=== PATIENT | female | born 1990 | race Caucasian/White ===

== ENCOUNTER → 2019-02-18 07:09 | Outpatient (CLI) | payer OTHER, SELFPAY ==
--- NOTE | 2019-02-18 07:11 | DI.US.S_ITS ---
PROCEDURE: US OB >= 14 WEEKS FETUS INDICATIONS: ANATOMY OUTSIDE/PRIOR DATING DATA: Last menstrual period (LMP): 09/19/18. LMP-based estimated date of delivery (ALLIE): 06/26/19. First dating scan (date and location): 02/18/19. Estimated date of delivery (ALLIE) from first dating scan: 06/25/19. TECHNIQUE: Real-time scanning was performed of the fetus, with image documentation and biometric measurements. Endovaginal scanning: No COMPARISON: None. FINDINGS: General: A single living intrauterine gestation is present. Presentation: Breech. Placenta: Placental position is left lateral, and low lying with the inferior margin 1.2 cm above the internal cervical os. Amniotic fluid index: 14.5 cm, normal range is 5-24 cm. heart rate: 139 beats per minute. Maternal cervical canal: 3.5 cm long. Normal lower limit is 2.5 cm. biometrics: Biparietal diameter: 22 weeks 3 days Head circumference: 21 weeks 6 days Abdominal circumference: 22 weeks 4 days Femur length: 20 weeks 2 days Estimated gestational age from initial scan: not applicable. Composite gestational age from present scan: 21 weeks 6 days Estimated weight and percentile: 439 g; 40 percentile Measurement variability for biometric dating: +/- 7 days from 14 weeks to 15 weeks 6 days gestation, +/- 10 days from 16 weeks to 21 weeks 6 days gestation, +/- 2 weeks from 22 weeks to 27 weeks 6 days gestation, +/- 3 weeks for 28 weeks gestation or later. weight reference: 4500 g or EFW >90/95% is considered macrosomia or large for gestational age. EFW <10% is small for gestational age. EFW 5% or less is considered intra-uterine growth restriction. Anatomic survey: Neuro: Ventricles are non-dilated at less than 10 mm. Cisterna magna is normal at 3-11 mm. Cerebellum is normal in size and morphology. Nuchal skin fold: Normal at less than 6 mm between 14-21 weeks gestational age. Face: Nose and lips, facial profile are normal. Spine: No evidence for spina bifida. Heart: 4-chambered heart is present, with normal ventricular outflow tracts. Diaphragm: Diaphragm is intact. Stomach: Left-sided stomach is present. Kidneys: No hydronephrosis. Normal is less than 5 mm in 2nd trimester, less than 7 mm in 3rd trimester. Cord: 3-vessel cord has orthotopic insertion. Bladder: Normal in size. Extremities: All 4 extremities identified. IMPRESSION: 1. Single living IUP present with a mean composite gestational age of 21 weeks 6 days corresponding to ultrasound ALLIE of 06/25/19. 2. Facial profile not well-visualized; otherwise normal anatomic survey. Dictated by: Len Metz [facility] Interpreted: Beto Robles MD on 02/18/2019 at 15:46 Approved by: Beto Robles M.D. on 02/18/2019 at 17:43
== END ==
PROVIDERS: Visit Provider Obstetrics & Gynecology
DX: Z34.82 Encounter for supervision of other normal pregnancy, second trimester (principal); Z3A.21 21 weeks gestation of pregnancy
CPT/HCPCS: 76811

== ENCOUNTER → 2019-03-26 10:09 | Outpatient (CLI) | payer OTHER, SELFPAY ==
[2019-03-26 12:01] LABS: Hematocrit 32.2 % (36-46); Hemoglobin 10.7 g/dL (12.0-16.0)
[2019-03-26 12:25] LABS: GTT (PREG) 1 Hour PP 50gm Dose 131 mg/dL (76-139)
== END ==
PROVIDERS: PCP Nurse Practitioner; Visit Provider Obstetrics & Gynecology
DX: Z34.90 Encounter for supervision of normal pregnancy, unspecified, unspecified trimester (principal); Z34.82 Encounter for supervision of other normal pregnancy, second trimester
CPT/HCPCS: 36415; 82950; 85014; 85018; 86850; 86900; 86901

== ENCOUNTER → 2019-04-22 10:09 | Outpatient (CLI) | payer OTHER, SELFPAY ==
--- NOTE | 2019-04-22 10:10 | DI.US.S_ITS ---
PROCEDURE: US OB FOLLOW UP INDICATIONS: ASSESS PLACENTAL LOCATION OUTSIDE/PRIOR DATING DATA: Last menstrual period (LMP): 09/19/18. LMP-based estimated date of delivery (ALLIE): 06/26/19. First dating scan (date and location): 02/18/19. Estimated date of delivery (ALLIE) from first dating scan: 06/25/19. TECHNIQUE: Real-time scanning was performed of the fetus, with image documentation and biometric measurements. COMPARISON: [facility], , OB >= 14 WEEKS FETUS, 02/18/2019, 7:22. FINDINGS: General: A single living intrauterine gestation is present. Presentation: Cephalic Placenta: Placental position is anterior Amniotic fluid index: 10.4 cm heart rate: 119 beats per minute. Maternal cervical canal: 5.5 cm in length (closed) Other: The inferior tip of the placenta is noted to be positioned approximately 3.3 cm from the internal cervical os. This was best appreciated after the patient had voided. IMPRESSION: 1. Single live intrauterine . 2. The tip of the inferior placenta is positioned approximately 3 cm from the internal cervical os. Dictated by: Andrew Cohen M.D. on 04/22/2019 at 9:54 Approved by: Andrew Cohen M.D. on 04/22/2019 at 9:56
== END ==
PROVIDERS: PCP Nurse Practitioner; Visit Provider Obstetrics & Gynecology
DX: O44.43 Low lying placenta NOS or without hemorrhage, third trimester (principal); Z3A.30 30 weeks gestation of pregnancy
CPT/HCPCS: 76816

== ENCOUNTER 2019-05-15 12:20 | Emergency (ER) | payer OTHER, SELFPAY ==
[2019-05-15 12:33] VITALS: BP 118/77; PULSE 99; RESP 14; TEMP 36.4; O2SAT 100
--- NOTE | 2019-05-15 13:04 | DI.US.S_ITS ---
PROCEDURE: US PERIPH VENOUS LOW EXTREM RT INDICATIONS: EDEMA TECHNIQUE: Real-time imaging, as well as color and pulse Doppler interrogation, were performed of the lower extremity deep veins from the inguinal ligament to the popliteal fossa. COMPARISON: None. FINDINGS: The common femoral, femoral and popliteal veins are normally compressible, and free of intraluminal thrombus. Color and pulse Doppler demonstrate normal phasic intraluminal flow. There is normal augmentation response to distal compression maneuver. IMPRESSION: Negative for deep venous thrombosis. Dictated by: Roland Ruelas M.D. on 05/15/2019 at 13:22 Approved by: Roland Ruelas M.D. on 05/15/2019 at 13:22
--- NOTE | 2019-05-15 13:50 | ED.EXTPRO ---
HPI - Extremity Problem General Chief complaint: Extremity Problem,Nontraumatic Stated complaint: thinks possible DVT right leg Time Seen by Provider: 05/15/19 13:50 Source: patient Mode of arrival: Wheelchair Limitations: no limitations History of Present Illness HPI Narrative: This is a 28-year-old female comes to the emergency department with concern for DVT in the right lower extremity. She is 34 weeks . She has noticed swelling in both of her lower extremities but significantly more in the right 1. Patient states that the left 1 will have some swelling but goes away easier when she elevates her legs wears the right 1 does not. Patient has not noted significant pain. She has not had any redness or other color changes to her lower extremity. She was seen by her obstetrics physician today and they attempted to get a DVT ultrasound as an outpatient but were unsuccessful so she was sent here for evaluation. Patient has not had any new issues with shortness of breath, no chest pain or pressure. She states that she has not had any abdominal pain or cramping. She states that the baby does seem to sit more on the right side. She did have a slight 2 weeks ago that was approximately 2 hours in duration to [place]. Related Data Home Medications Medication Instructions Recorded Confirmed [id number]-[id number] 3-fat com #1 27 cap PO 02/05/19 05/15/19 mg-1 mg-300 mg capsule levothyroxine 25 mcg tablet 25 mcg PO DAILY 02/05/19 05/15/19 Allergies Allergy/AdvReac Type Severity Reaction Status Date / Time amoxicillin Allergy Mild hives Verified 05/01/19 13:52 sulfamethoxazole Allergy Mild hives Verified 05/01/19 13:52 [From ] trimethoprim [From ] Allergy Mild hives Verified 05/01/19 13:52 Review of Systems Review of Systems ROS Unobtainable: All systems reviewed & are unremarkable except as noted in HPI and below Patient History Medical History Acne (Chronic) Allergies (Chronic) Endometriosis (Chronic) Frequent headaches (Acute) Heavy menstrual period (Chronic) Hypothyroidism (Chronic ~2018) Infertility (Inactive ~2016) Migraine (Acute) Ovarian cyst (Chronic) Painful menstrual periods (Chronic) Vision disorder (Chronic) Surgical History Anesthesia (Resolved) History of laparoscopy (Resolved ~08/13/18) History of laparoscopy (Inactive ~2008) History of tonsillectomy (Resolved ~2003) Family History (Updated 02/12/19 @ 11:20 by Pao Acuña RN) Father Hypertension Mother Hypertension Grandmother Hypertension Grandfather Diabetes mellitus Grandmother Cancer H/O hyperthyroidism Social History marital status: Smoking Status: Never smoker Smoking Status: Never smoker alcohol intake frequency: other Substance Use Type: does not use Exam Narrative Exam Narrative: GENERAL: Alert and oriented x three, well-nourished, well-appearing female in no acute distress. HEENT: Head normocephalic, atraumatic, EOMI, pupils reactive, face symmetric, moist mucous membranes NECK: Supple, full range of motion CARDIOVASCULAR: Regular rate and rhythm without murmurs, rubs or gallops. RESPIRATORY: Breath sounds equal bilaterally, no wheezes rales or rhonchi. ABDOMEN: Soft, nontender. Gravid, size appropriate for dates. Normoactive bowel sounds all 4 quadrants. No guarding or rebound, rigidity, no mass : No CVA tenderness EXTREMITIES: Normal range of motion, mild bilateral lower extremity edema, nonpitting. Neurovascularly intact NEUROLOGICAL: Cranial nerves II through XII grossly intact. Moving all extremities SKIN: Warm, dry, no petechiae, no rashes or lesions. Initial Vital Signs Initial Vital Signs: Vital Signs Temperature 97.6 F 05/15/19 12:33 Pulse Rate 99 H 05/15/19 12:33 Respiratory Rate 14 05/15/19 12:33 Blood Pressure 118/77 05/15/19 12:33 Pulse Oximetry 100 05/15/19 12:33 Course Orders Ordered: ED Orders 05/15/19 13:04 US periph venous low extrem rt Stat Vital Signs Vital signs: Vital Signs - 8 hr 05/15/19 12:33 05/15/19 13:51 Temperature 97.6 F Pulse Rate 99 H Pulse Rate [Right Dorsalis Pedis] 72 Respiratory Rate 14 Blood Pressure 118/77 Pulse Oximetry 100 MDM - Extremity (Nontraumatic) Imaging Data US - DVT: Radiologist's Impression: [address] [address] Ultrasound Report Signed Patient: Lainey Wallace [facility]#: [id number] : 1990Acct:[id number] Age/Sex: 28 / FDate of Service: 05/15/19 Loc: ED Accession Number: [id number] Procedure: US periph venous low extrem rt Ordering Provider: Melodie Hernandes D.O. PROCEDURE: US PERIPH VENOUS LOW EXTREM RT INDICATIONS: EDEMA TECHNIQUE: Real-time imaging, as well as color and pulse Doppler interrogation, were performed of the lower extremity deep veins from the inguinal ligament to the popliteal fossa. COMPARISON: None. FINDINGS: The common femoral, femoral and popliteal veins are normally compressible, and free of intraluminal thrombus. Color and pulse Doppler demonstrate normal phasic intraluminal flow. There is normal augmentation response to distal compression maneuver. IMPRESSION: Negative for deep venous thrombosis. Dictated by: Roland Ruelas M.D. on 05/15/2019 at 13:22 Approved by: Roland Ruelas M.D. on 05/15/2019 at 13:22 [facility] Narrative Medical decision making narrative: Ultrasound is negative for DVT. Patient does have risk factors that warranted ordering imaging as she is as well as had recent travel although it was not prolonged period. We discussed that patient may be having some pelvic congestion that is causing some of her edema and potentially little bit more on the right than the left but did discuss strict return cautions. Patient has follow-up in 1 week with her OBGYN. Discharge Plan Departure Patient Disposition: Home Clinical Impression: Edema of left lower extremity, Discharge Date/Time: 05/15/19 14:23 Activity Restrictions/Additional Instructions: Follow-up with obstetrics at your appointment next week. Continue home medication as prescribed. Elevate your legs when you are able, some individuals fine compression hose or stockings to be helpful. Return to the ER for fevers greater 100.4 F, rapidly worsening swelling with redness, increasing pain, numbness or tingling, new chest pain, shortness of breath, lightheadedness or passing out, hyper reflexia or other new or concerning symptoms. Prescriptions: No Action WGY-hjpm-TZ-omega 3-fat com #1 27-1-300 mg capsule PO RF: 0 levothyroxine [Synthroid] 25 mcg tablet 25 mcg PO DAILY RF: 0 Referrals: Yudy Monreal ARNP [Primary Care Provider] -
[2019-05-15 13:51] VITALS: PULSE 72
== END 2019-05-15 14:23 | disposition home or self-care (01) ==
PROVIDERS: Emergency Provider Emergency Medicine; PCP Nurse Practitioner
DX: R60.9 Edema, unspecified (principal)
CPT/HCPCS: 93971; 99283

== ENCOUNTER → 2019-05-22 11:18 | Outpatient (CLI) | payer OTHER, SELFPAY ==
[2019-05-23 09:15] LABS: Strep Grp B PCR NEG for Grp B Strep
== END ==
PROVIDERS: PCP Nurse Practitioner; Visit Provider Obstetrics & Gynecology
DX: Z34.83 Encounter for supervision of other normal pregnancy, third trimester (principal); Z3A.35 35 weeks gestation of pregnancy
CPT/HCPCS: 87653

== ENCOUNTER 2019-05-22 11:39 | Outpatient (CLI) | payer OTHER, SELFPAY ==
--- NOTE | 2019-05-22 12:27 | PM.OBTRLD ---
Visit Information Visit Information Date of evaluation: 05/22/19 Reason for Evaluation: Yes non-stress test Comments/Additional reasons for admission: Patient is a 28yo @35+0 sent for NST after variables vs low baseline on dopplar in office, no other obstetrical complaints, no complications. Vital Signs Vital Signs: 129/81, HR 95 PFSH Medical History Acne (Chronic) Allergies (Chronic) Endometriosis (Chronic) Frequent headaches (Acute) Heavy menstrual period (Chronic) Hypothyroidism (Chronic ~2017) Infertility (Inactive ~2015) Migraine (Acute) Ovarian cyst (Chronic) Painful menstrual periods (Chronic) Vision disorder (Chronic) Surgical History Anesthesia (Resolved) History of laparoscopy (Resolved ~08/13/18) History of laparoscopy (Inactive ~2008) History of tonsillectomy (Resolved ~2003) Family History Father Hypertension Mother Hypertension Grandmother Hypertension Grandfather Diabetes mellitus Grandmother Cancer H/O hyperthyroidism Social History marital status: Smoking Status: Never smoker Review of Systems Constitutional Constitutional: Reports system reviewed and no additional complaints, except as documented Evaluation Evaluation Baseline heart rate: 115 Variability: Moderate (11-25) monitor accelerations: Present monitor decelerations: Absent Category of Tracing: I Comments: Baseline low end of normal range, but reassuring status Diagnosis, Plan/Disposition Plan/Disposition Plan: Patient with reassuring status, discharged home with precautions and outpatient follow up OB Disposition: home
== END 2019-05-22 12:35 | disposition home or self-care (01) ==
LOC: OB 05-23 10:01
PROVIDERS: PCP Nurse Practitioner; Referring Provider Obstetrics & Gynecology; Visit Provider Obstetrics & Gynecology
DX: O36.8330 Maternal care for abnormalities of the fetal heart rate or rhythm, third trimester, not applicable or unspecified (principal); Z3A.35 35 weeks gestation of pregnancy
CPT/HCPCS: 59025; 87653; G0378; G0379

== ENCOUNTER 2019-05-29 11:01 | Outpatient (CLI) | payer OTHER, SELFPAY ==
--- NOTE | 2019-05-29 11:47 | DI.US.S_ITS ---
PROCEDURE: US OB >= 14 WEEKS FETUS INDICATIONS: BPP; EFW OUTSIDE/PRIOR DATING DATA: Last menstrual period (LMP): 09/19/2018. LMP-based estimated date of delivery (ALLIE): 06/26/2019. First dating scan (date and location): 02/18/2019, [facility]. Estimated date of delivery (ALLIE) from first dating scan: 06/25/2019. TECHNIQUE: Real-time scanning was performed of the fetus, with image documentation and biometric measurements. Endovaginal scanning: Not performed COMPARISON: [facility], OB FOLLOW UP, 04/22/2019, 10:17. [facility], OB >= 14 WEEKS FETUS, 02/18/2019, 7:22. FINDINGS: General: A single living intrauterine gestation is present. Presentation: Vertex. Placenta: Placental position is anterior, without previa. Amniotic fluid index: 13.1 cm, normal range is 5-24 cm. heart rate: 155 beats per minute. Maternal cervical canal: Not well-seen. biometrics: Biparietal diameter: 8.9 cm. 36 weeks 1 day. Head circumference: 32.3 cm. 36 weeks 4 days. Abdominal circumference: 32.1 cm. 32 weeks 1 day. Femur length: 6.5 cm. 33 weeks 3 days. Estimated gestational age from initial scan: 36 weeks 1 day. Composite gestational age from present scan: 35 weeks 4 days. Estimated weight and percentile: 2667 g. 31st percentile. Measurement variability for biometric dating: +/- 7 days from 14 weeks to 15 weeks 6 days gestation, +/- 10 days from 16 weeks to 21 weeks 6 days gestation, +/- 2 weeks from 22 weeks to 27 weeks 6 days gestation, +/- 3 weeks for 28 weeks gestation or later. weight reference: 4500 g or EFW >90/95% is considered macrosomia or large for gestational age. EFW <10% is small for gestational age. EFW 5% or less is considered intra-uterine growth restriction. Biophysical profile: Score 8 out of 8 Tone: 2 Movement: 2 Respiration: 2 Largest pocket: 2 IMPRESSION: 1. Andrews living intrauterine at 35 weeks 4 days based on today's ultrasound. This is concordant with the prior ultrasound. There is interval growth. The fetus is in the 31st percentile for weight. Femoral length and abdominal circumference are measuring slightly smaller than expected. 2. Normal placenta and amniotic fluid. 3. Normal biophysical profile. Score 8 out of 8. Dictated by: Nico De Leon M.D. on 05/29/2019 at 12:57 Approved by: Nico De Leon M.D. on 05/29/2019 at 13:07
--- NOTE | 2019-05-29 12:26 | PM.OBTRLD ---
Visit Information Visit Information Date of evaluation: 05/29/19 Primary OB Provider: Norma Copeland Reason for Evaluation: Yes non-stress test Comments/Additional reasons for admission: Patient is a 28yo P0 @36+0 reporting two days of decreased movement. Vital Signs Vital Signs: 137/84 -> 125/84, 124/80 [facility] Medical History Acne (Chronic) Allergies (Chronic) Endometriosis (Chronic) Frequent headaches (Acute) Heavy menstrual period (Chronic) Hypothyroidism (Chronic ~2017) Infertility (Inactive ~2015) Migraine (Acute) Ovarian cyst (Chronic) Painful menstrual periods (Chronic) Vision disorder (Chronic) Surgical History Anesthesia (Resolved) History of laparoscopy (Resolved ~08/13/18) History of laparoscopy (Inactive ~2008) History of tonsillectomy (Resolved ~2003) Family History Father Hypertension Mother Hypertension Grandmother Hypertension Grandfather Diabetes mellitus Grandmother Cancer H/O hyperthyroidism Social History marital status: Smoking Status: Never smoker Review of Systems Constitutional Constitutional: Reports system reviewed and no additional complaints, except as documented Evaluation Evaluation Baseline heart rate: 125 Variability: Average (6-10) monitor accelerations: Present monitor decelerations: Absent Category of Tracing: I Comments: 8/8 BPP per verbal report Diagnosis, Plan/Disposition Plan/Disposition Plan: Discharge home with antepartum precautions, kick counts discussed in office. Outpatient follow up scheduled. OB Disposition: home
== END 2019-05-29 12:35 | disposition home or self-care (01) ==
LOC: LABOR 12:23 → OB 05-30 09:33
PROVIDERS: PCP Nurse Practitioner; Referring Provider Obstetrics & Gynecology; Visit Provider Obstetrics & Gynecology
DX: O36.8130 Decreased fetal movements, third trimester, not applicable or unspecified (principal); Z3A.36 36 weeks gestation of pregnancy
CPT/HCPCS: 59025; 76811; 76819; G0378; G0379

== ENCOUNTER 2019-05-31 15:29 | Outpatient (CLI) | payer OTHER, SELFPAY ==
[2019-05-31 15:54] LABS: Bacteria Urine None Seen; WBC Urine None Seen (0-5/HPF)
[2019-05-31 16:12] LABS: Appearance Urine UA CLEAR; Bilirubin Urine UA NEGATIVE (NEGATIVE); Color Urine UA YELLOW; Glucose Urine UA TRACE g/dL (Negative); Ketones Urine UA NEGATIVE (NEGATIVE); Leukocyte Esterase Urine UA NEGATIVE (NEGATIVE); Nitrite Urine UA NEGATIVE (Negative); Occult Blood Urine UA NEGATIVE (Negative); Protein Urine UA NEGATIVE (Negative); Specific Gravity Urine UA <=1.005 (1.000-1.035); Urobilinogen Urine UA 0.2 E.U./dL (0.2)
[2019-05-31 16:25] LABS: Culture Indicated Urine Cult Not Indicated; RBC Urine 0-1/HPF (0-5/HPF); Squamous Epithelial Cell Urine 0-1 /HPF (0-5/HPF)
--- NOTE | 2019-05-31 16:36 | PM.OBTRLD ---
Visit Information Visit Information Date of evaluation: 05/31/19 Primary OB Provider: Norma Copeland Reason for Evaluation: Yes non-stress test Comments/Additional reasons for admission: This patient is a 28yo @36+3 presenting with intermittent cramping pain since this AM. Patient reports no decreased movement, LOF, VB, abdominal pain, BEAL, visual changes, or any other symptoms. Patient reports feeling otherwise well with no GI or UTI symptoms. Vital Signs Vital Signs: 131/78 -> 122/71, HR 93 PFSH Medical History Acne (Chronic) Allergies (Chronic) Endometriosis (Chronic) Frequent headaches (Acute) Heavy menstrual period (Chronic) Hypothyroidism (Chronic ~2017) Infertility (Inactive ~2015) Migraine (Acute) Ovarian cyst (Chronic) Painful menstrual periods (Chronic) Vision disorder (Chronic) Surgical History Anesthesia (Resolved) History of laparoscopy (Resolved ~08/13/18) History of laparoscopy (Inactive ~2008) History of tonsillectomy (Resolved ~2003) Family History Father Hypertension Mother Hypertension Grandmother Hypertension Grandfather Diabetes mellitus Grandmother Cancer H/O hyperthyroidism Social History marital status: Smoking Status: Never smoker Review of Systems Constitutional Constitutional: Reports system reviewed and no additional complaints, except as documented Respiratory Respiratory: Reports system reviewed and no additional complaints, except as documented Gastrointestinal Gastrointestinal: Reports as per HPI and Reports system reviewed and no additional complaints, except as documented Genitourinary Genitourinary: Reports as per HPI Exam GI Palpation: soft and No tender Other: 0/50/-3, posterior, firm per nursing staff cervical exam Objective Labs Labs: Laboratory Results - last 24 hr 05/31/19 15:45 Urine Color Yellow Urine Appearance Clear Urine pH 7.0 Ur Specific [place] <=1.005 Urine Protein Negative Urine Glucose (UA) Trace H Urine Ketones Negative Urine Occult Blood Negative Urine Nitrate Negative Urine Bilirubin Negative Urine Urobilinogen 0.2 Ur Leukocyte Esterase Negative Urine RBC 0-1/hpf Urine WBC None seen Ur Squamous Epith Cells 0-1 /hpf Urine Bacteria None seen Ur Culture Indicated? Cult not indicated Evaluation Evaluation Baseline heart rate: 120 Variability: Moderate (11-25) monitor accelerations: Present monitor decelerations: Absent Contraction Frequency (minutes): 0 Category of Tracing: I Cervical dilation (cm): 0 Cervical effacement (%): 50 station: -3 Laboratory results: Laboratory Tests 05/31/19 15:45 Urine Color Yellow Urine Appearance Clear Urine pH 7.0 Ur Specific [place] <=1.005 Urine Protein Negative Urine Glucose (UA) Trace H Urine Ketones Negative Urine Occult Blood Negative Urine Nitrate Negative Urine Bilirubin Negative Urine Urobilinogen 0.2 Ur Leukocyte Esterase Negative Urine RBC 0-1/hpf Urine WBC None seen Ur Squamous Epith Cells 0-1 /hpf Urine Bacteria None seen Ur Culture Indicated? Cult not indicated Diagnosis, Plan/Disposition Plan/Disposition Plan: patient reports intermittent cramping, now improved and with no signs of UTI, labor, abruption, or infection. Patient counselled on labor in the 36th week, antepartum precautions stressed. Patient and spouse vocalized understanding. OB Disposition: home
== END 2019-05-31 16:40 | disposition home or self-care (01) ==
LOC: LABOR 16:08 → OB 06-03 16:48
PROVIDERS: PCP Nurse Practitioner; Referring Provider Obstetrics & Gynecology; Visit Provider Obstetrics & Gynecology
DX: O47.03 False labor before 37 completed weeks of gestation, third trimester (principal); Z3A.36 36 weeks gestation of pregnancy
CPT/HCPCS: 59025; 81001; G0378; G0379

== ENCOUNTER 2019-06-27 12:20 | Outpatient (CLI) | payer OTHER, SELFPAY | END 2019-06-27 13:39 | disposition home or self-care (01) | LOC: OB 14:35 | PROVIDERS: PCP Nurse Practitioner | DX: O48.0 Post-term pregnancy (principal); Z3A.40 40 weeks gestation of pregnancy | CPT/HCPCS: 59025; G0378; G0379 ==

== ENCOUNTER 2019-07-01 11:23 | Outpatient (CLI) | payer OTHER, SELFPAY ==
--- NOTE | 2019-07-01 14:48 | PM.OBTRLD ---
Visit Information Visit Information Date of evaluation: 07/01/19 Primary OB Provider: Norma Copeland Reason for Evaluation: Yes non-stress test Comments/Additional reasons for admission: Postdates testing [facility] Medical History Acne (Chronic) Allergies (Chronic) Endometriosis (Chronic) Frequent headaches (Acute) Heavy menstrual period (Chronic) Hypothyroidism (Chronic ~2017) Infertility (Inactive ~2015) Migraine (Acute) Ovarian cyst (Chronic) Painful menstrual periods (Chronic) Vision disorder (Chronic) Surgical History Anesthesia (Resolved) History of laparoscopy (Resolved ~08/13/18) History of laparoscopy (Inactive ~2008) History of tonsillectomy (Resolved ~2003) Family History Father Hypertension Mother Hypertension Grandmother Hypertension Grandfather Diabetes mellitus Grandmother Cancer H/O hyperthyroidism Social History marital status: Smoking Status: Never smoker Review of Systems Constitutional Constitutional: Reports system reviewed and no additional complaints, except as documented Evaluation Evaluation Baseline heart rate: 115 Variability: Moderate (11-25) monitor accelerations: Present monitor decelerations: Absent Category of Tracing: I Diagnosis, Plan/Disposition Plan/Disposition Plan: cat 1 NST, reassuring, discharged home for IOL tomorrow. OB Disposition: home
== END 2019-07-01 12:25 | disposition home or self-care (01) ==
LOC: LABOR 12:14 → OB 07-02 07:54
PROVIDERS: PCP Nurse Practitioner; Referring Provider Obstetrics & Gynecology; Visit Provider Obstetrics & Gynecology
DX: O48.0 Post-term pregnancy (principal); Z3A.41 41 weeks gestation of pregnancy
CPT/HCPCS: 59025; G0378; G0379

== ENCOUNTER 2019-07-02 17:53 | Inpatient (IN) | payer OTHER, SELFPAY ==
[2019-07-02] MEDS: DINOPROSTONE VAG (CERVIDIL) 10 MG VAG (20:18)
[2019-07-02 21:18] LABS: Add Manual Diff / Slide Review NO; Basophils Absolute Auto 0 /uL (0-100); Basophils Percent Auto 0.3 % (0-2); Eosinophils Absolute Auto 200 /uL (0-450); Eosinophils Percent Auto 2.1 % (2-4); Hematocrit 36.4 % (36-46); Hemoglobin 11.8 g/dL (12.0-16.0); Lymphocytes Absolute Auto 2200 /uL (1100-4500); Lymphocytes Percent Auto 18.8 % (25-40); Mean Corpuscular HGB Conc 32.5 % (30-36); Mean Corpuscular Hemoglobin 27.4 PG (26-34); Mean Corpuscular Volume 84.1 fL (80-100); Monocytes Absolute Auto 1000 /uL (0-900); Monocytes Percent Auto 8.2 % (3-14); Neutrophils Absolute Auto 8300 /uL (1500-7000); Neutrophils Percent Auto 70.6 % (50-75); Platelet Count 247 X10^3/uL (150-400); Red Blood Cell Count 4.33 X10^6/uL (4.0-5.2); Red Cell Distribution Width 17.5 % (11.6-14.8); White Blood Cell Count 11.8 X10^3/uL (4.5-11.0)
[2019-07-03 03:11] VITALS: BP 115/64
--- NOTE | 2019-07-03 08:01 | P.HPOB_ITS ---
OB HPI Date/Time Date of admission: 07/02/19 Date Patient Seen: 07/03/19 Time Patient Seen: 08:01 History of Present Condition Chief complaint: Induction : 2 Para: 1 Estimated Date of Delivery: 06/26/19 Estimated Gestational Age (weeks): 41 Narrative: Lainey Wallace is a 28 year old 010 at 41 weeks 0 days p resenting for induction of labor for postdates. The patient reports feeling well, intermittent mild contractions, good movement, no vaginal bleeding, loss of fluid, no other complaints obstetrical or otherwise. The patient's has been uncomplicated, though she has been occasionally monitored for a low normal baseline. The patient transferred care from the [facility] at 21 weeks. EFW at 36 weeks revealed a symmetrically grown, AGA fetus in s the 75th percentile. The patient has a history of infertility, with hysteroscopy and treatment with synthroid despite normal TSH levels. She has a history of laparoscopy for endometriosis. Indications Indication for induction OB: post dates History of Present care: initiated at week # (6) and pounds weight gain (64) Dating criteria: LMP confirmed by 1st trimester US Obstetrical complications: none Medical complications: none Preadmission Labs Blood type: O (+) positive -: Antibody screen: negative, GBS status: negative, HBsAG: negative, HIV: negative and RPR/VDLR: negative -: Rubella: immune and Varicella: immune 1 hr GTT: 131 Prior (ies) History: 2016, 5 week SAB Evaluation Evaluation Baseline heart rate: 120 Variability: Moderate (11-25) monitor accelerations: Present monitor decelerations: Absent Contraction Frequency (minutes): 5 Category of Tracing: I Cervical dilation (cm): 0 Cervical effacement (%): 75 Laboratory results: Laboratory Tests 07/02/19 07/02/19 20:30 20:30 WBC 11.8 H RBC 4.33 Hgb 11.8 L Hct 36.4 MCV 84.1 MCH 27.4 MCHC 32.5 RDW 17.5 H Plt Count 247 Neut % (Auto) 70.6 Lymph % (Auto) 18.8 L Stokes % (Auto) 8.2 Eos % (Auto) 2.1 Baso % (Auto) 0.3 Neut # (Auto) 8300 H Lymph # (Auto) 2200 Stokes # (Auto) 1000 H Eos # (Auto) 200 Baso # (Auto) 0 Blood Type O Positive Antibody Screen Negative Comments: EFW 8#8 PFSH Medical History Acne (Chronic) Allergies (Chronic) Endometriosis (Chronic) Frequent headaches (Acute) Heavy menstrual period (Chronic) Hypothyroidism (Chronic ~2017) Infertility (Inactive ~2015) Migraine (Acute) Ovarian cyst (Chronic) Painful menstrual periods (Chronic) Vision disorder (Chronic) Surgical History Anesthesia (Resolved) History of laparoscopy (Resolved ~08/13/18) History of laparoscopy (Inactive ~2008) History of tonsillectomy (Resolved ~2003) Family History Father Hypertension Mother Hypertension Grandmother Hypertension Grandfather Diabetes mellitus Grandmother Cancer H/O hyperthyroidism Social History marital status: Smoking Status: Never smoker Meds Home Medications and Allergies Home Medications Medication Instructions Recorded Confirmed Type IPP-jejn-OD-omega 3-fat com #1 27 cap PO 02/05/19 06/27/19 History mg-1 mg-300 mg capsule Allergies Allergy/AdvReac Type Severity Reaction Status Date / Time amoxicillin Allergy Mild hives Verified 06/27/19 11:32 sulfamethoxazole Allergy Mild hives Verified 06/27/19 11:32 [From ] trimethoprim [From ] Allergy Mild hives Verified 06/27/19 11:32 Review of Systems Constitutional Constitutional: Reports system reviewed and no additional complaints, except as documented Cardiovascular Cardiovascular: Reports system reviewed; no additional complaints, except as documented Respiratory Respiratory: Reports system reviewed and no additional complaints, except as documented Gastrointestinal Gastrointestinal: Reports system reviewed and no additional complaints, except as documented Genitourinary Genitourinary: Reports system reviewed and no additional complaints, except as documented Musculoskeletal Musculoskeletal: Reports system reviewed; no additional complaints, except as documented Neurologic Neurologic: Reports system reviewed and no additional complaints, except as documented Exam Vital Signs (past 8 hours): - 07/03/19 03:11 Blood Pressure 115/64 Const General: cooperative, healthy appearing, comfortable and well developed Resp Effort & Inspection: normal respiratory effort Auscultation: clear to auscultation bilaterally Cardio Rate: regular rate Rhythm: regular rhythm GI Palpation: soft and No tender Objective Labs Result Diagrams: 07/02/19 20:30 Labs: Laboratory Results - last 24 hr 07/02/19 07/02/19 20:30 20:30 WBC 11.8 H RBC 4.33 Hgb 11.8 L Hct 36.4 MCV 84.1 MCH 27.4 MCHC 32.5 RDW 17.5 H Plt Count 247 Neut % (Auto) 70.6 Lymph % (Auto) 18.8 L Stokes % (Auto) 8.2 Eos % (Auto) 2.1 Baso % (Auto) 0.3 Neut # (Auto) 8300 H Lymph # (Auto) 2200 Stokes # (Auto) 1000 H Eos # (Auto) 200 Baso # (Auto) 0 Blood Type O Positive Antibody Screen Negative Assessment and Plan Assessment and Plan Assessment and Plan narrative: This patient is s/p overnight cervidil for cervic al ripening, with a plan to start pitocin this AM 1 hr after removal. Reassuring tracing overnight. Patient to be admitted per the usual protocol, with cEFM during induction. - cEFM, toco - CBC, T&S
[2019-07-03] MEDS: OXYTOCIN PREMIX 30 UNIT/500 ML PLAST..BAG IV (09:32)
--- NOTE | 2019-07-03 12:33 | PM.OBPNLAB ---
Date/Time Date Patient Seen: 07/03/19 Time Patient Seen: 12:33 Pain Control Pain control: tolerating well Pelvic Exam Dilation (cm): 2 Effacement (%): 75 station: -1 Amniotic membrane status: Intact Comments: VSS Contractions Pitocin rate (mU/min): 6 Contraction frequency (min): 3 Contraction duration (min): 1 Contraction pattern: Regular Contraction intensity: Mild Status status: Category l Heart Rate Baseline: 120 Monitor Accelerations: Present Monitor Decelerations: Absent Monitor Variability: Moderate Assessment and Plan Assessment: induction ongoing Plan: continuous present management
--- NOTE | 2019-07-03 16:24 | PM.OBPNLAB ---
Date/Time Date Patient Seen: 07/03/19 Time Patient Seen: 16:24 Pain Control Pain control: tolerating well Pelvic Exam Dilation (cm): 3 Effacement (%): 75 station: -1 Amniotic membrane status: Intact Contractions Pitocin rate (mU/min): 12 Contraction frequency (min): 3 Contraction duration (min): 1 Contraction pattern: Regular Contraction intensity: Mild Status status: Category l Heart Rate Baseline: 120 Monitor Accelerations: Present Monitor Decelerations: Absent Monitor Variability: Moderate Assessment and Plan Assessment: induction ongoing Plan: continuous present management Comments: Patient has made minimal cervical change. To pursue increased pit per protocol. Discussed AROM at next exam.
[2019-07-03] MEDS: LACTATED RINGERS 1,000 ML 100 ML IV (20:03)
--- NOTE | 2019-07-03 20:23 | PM.OBPNLAB ---
Date/Time Date Patient Seen: 07/03/19 Time Patient Seen: 20:23 Pain Control Pain control: tolerating well Pelvic Exam Dilation (cm): 3 Effacement (%): 75 station: -1 Amniotic membrane status: Intact Comments: VSS Contractions Pitocin rate (mU/min): 14 Contraction frequency (min): 3 Contraction pattern: Regular Contraction intensity: Mild Status status: Category l Heart Rate Baseline: 120 Monitor Accelerations: Present Monitor Decelerations: Absent Monitor Variability: Moderate Assessment and Plan Assessment: induction ongoing Plan: other Comments: This patient is a 28yo @41+0 admitted for induction of labor for postdates. The patient underwent cervical ripening with cervidil overnight, followed by 12 hours of pitocin administration per protocol. Patient and fetus tolerated this well, with cat 1 EFM throughtout the day and good patient coping mechanisms, but minimal cervical change has been made and the internal os of the cervix remains firm. I discussed with the patient the options of ongoing pitocin, pitocin and AROM, or overnight cervical ripening with cytotec followed by resuming pitocin in the AM. The patient and her spouse vocalized understanding of these options, and we will stop the pitocin and begin further cervical ripening with 50mcg PO cytotec q4 for 3 doses. EFM per protocol overnight, with PRN benadryl or ambien.
[2019-07-03] MEDS: miSOPROStoL 25 MCG TABLET PO (22:00)
[2019-07-03] MEDS: diphenhydrAMINE 25 MG TABLET PO (22:05)
[2019-07-04] MEDS: miSOPROStoL 25 MCG TABLET PO ×2 (02:04→06:06)
[2019-07-04] MEDS: LACTATED RINGERS 1,000 ML 100 ML IV ×2 (09:10→20:09)
[2019-07-04] MEDS: OXYTOCIN PREMIX 30 UNIT/500 ML PLAST..BAG IV (09:20)
--- NOTE | 2019-07-04 09:38 | PM.OBPNLAB ---
Date/Time Date Patient Seen: 07/04/19 Time Patient Seen: 09:38 Pain Control Pain control: tolerating well Pelvic Exam Dilation (cm): 3 Effacement (%): 75 station: -1 Amniotic membrane status: Ruptured (AROM for light mec) Contractions Pitocin rate (mU/min): 3 Contraction frequency (min): 3 Contraction pattern: Regular Contraction intensity: Mild Status status: Category l Heart Rate Baseline: 120 Monitor Accelerations: Present Monitor Decelerations: Absent Monitor Variability: Moderate Assessment and Plan Assessment: induction ongoing Plan: continuous present management Comments: Patient being induced for postdates, s/p 12 hrs cervidil and 3 doses oral cytotec, and 12 hrs pitocin yesterday. AROM for light mec this morning, maternal and status reassuring.
--- NOTE | 2019-07-04 15:20 | PM.OBPNLAB ---
Date/Time Date Patient Seen: 07/04/19 Time Patient Seen: 14:20 Pain Control Pain control: epidural Comments: Patient requesting epidural. Pelvic Exam Dilation (cm): 4 Effacement (%): 75 station: 0 Amniotic membrane status: Ruptured (AROM for light mec) Comments: Thick mec Contractions Contraction frequency (min): 2 Contraction pattern: Regular Contraction intensity: Strong/Firm Status status: Category ll (rare variable decelerations) Heart Rate Baseline: 120 Monitor Accelerations: Present Monitor Decelerations: Early Monitor Variability: Moderate Assessment and Plan Assessment: induction ongoing Plan: continuous present management Comments: This patient's cervix is beginning to dilate, but continues to have a firm band of scar tissue in the setting of a history of endometriosis.
--- NOTE | 2019-07-04 17:40 | PM.OBPNLAB ---
Date/Time Date Patient Seen: 07/04/19 Time Patient Seen: 17:40 Pain Control Pain control: epidural Pelvic Exam Dilation (cm): 5 Effacement (%): 80 station: 0 Amniotic membrane status: Ruptured (AROM for light mec) Comments: thick meconium Contractions Pitocin rate (mU/min): 22 Contraction frequency (min): 2 Contraction pattern: Regular Contraction intensity: Strong/Firm Status status: Category ll (earlies and variables) Heart Rate Baseline: 120 Monitor Accelerations: Present Monitor Decelerations: Variable Monitor Variability: Moderate Assessment and Plan Assessment: induction ongoing Plan: continuous present management Comments: This patient has made minimal cervical change in 3 hours, but has reassuring features to EFM (moderate variability and accelerations.) She is beginning to have early or variable decelerations with most contractions. We discussed the data around nulliparous inductions of labor, including that 95% of patients enter active labor after 12 hours of AROM and pitocin, and discussed the risks and benefits of c section in comparison. We discussed a repeat SVE in 2 hours, with close monitoring for ongoing signs of good oxygenation. Patient and spouse vocalized understanding.
--- NOTE | 2019-07-04 18:24 | PM.OBPNLAB ---
Date/Time Date Patient Seen: 07/04/19 Time Patient Seen: 18:25 Pain Control Pain control: epidural Pelvic Exam Dilation (cm): 5 Effacement (%): 80 station: 0 Amniotic membrane status: Ruptured (AROM for light mec) Comments: Thick mec Contractions Pitocin rate (mU/min): 17 Contraction frequency (min): 2 Contraction pattern: Regular Contraction intensity: Strong/Firm Status status: Category ll (earlies and variables) Heart Rate Baseline: 105 Monitor Accelerations: Present Monitor Decelerations: Early Monitor Variability: Moderate Assessment and Plan Plan: Comments: This patient has made minimal cervical change since this AM, and has had no descent with just increasing molding. The heart rate has an increasingly low baseline, now 105, though with moderate variability. Accels remain present but decreasingly frequent. At this point, further progression seems clinically unlikely, and the patient was counselled on this vs. risks and benefits of c section, including damage to surrounding organs, infection, and bleeding. We discussed that the status changes are not emergent, but that I would recommend proceeding to c section at this time because of the above. All questions were answered, and the patient vocalized understanding.
[2019-07-04] MEDS: CLINDAMYCIN 900 MG/50 ML PIGGYBACK 50 MG IV (19:00)
[2019-07-04] MEDS: GENTAMICIN 330 MG in SODIUM CHLORIDE 0.9% 100 ML 108.25 ML IV (19:15)
[2019-07-04] MEDS: AZITHROMYCIN 500 MG in DEXTROSE 5% IN WATER 250 ML IV (19:30)
--- NOTE | 2019-07-04 19:35 | SUR.OPER ---
Supine on Padded OR bed, head on pillow, safety belt at thigh, arms secured on padded arm boards at <90 degrees abduction. Bump under right buttock. Legs uncrossed with pillow under knees, gel pad to heels, tape over blanket to lower legs.
--- NOTE | 2019-07-04 19:42 | SUR.OPER ---
live male at 193, see L&D note
[2019-07-04 20:30] VITALS: BP 105/63; PULSE 99; RESP 19; TEMP 36.7; O2SAT 100
[2019-07-04 20:33] VITALS: BP 98/63; PULSE 103; RESP 21; O2SAT 100
--- NOTE | 2019-07-04 20:33 | PM.OP.1 ---
Operative Date/Time/Diagnoses Date of procedure: 07/04/19 Time of procedure: 19:30 Pre-op diagnosis: Arrest of dilation Post-op diagnosis: same Procedure & Clinicians Procedure: primary section Same procedure as scheduled: Yes Indications: arrest of dilation in the settig of cat [address] [facility] Surgeon: Norma Copeland Commercial Cr[employer]ber: Bell Canas Anesthesia Type: Epidural Operative Notes Findings: Healthy male in cephalic, ROP presentation. Body cord x2. Weight 8 lb, 6 oz. Apgars 9 and 9. Normal uterus, normal fallopian tubes. Mild endometriosis on both ovaries. Closure Type: primary Specimen(s): none sent Estimated Blood Loss (mL): 500 Procedure in detail: EBL: 500ccs Fluids:1300ccs UOP: 600ccs clear urine Findings: Male infant in cephalic ROP presentation, Apgars 9 and 9, weight 8 lb 6 oz, normal uterus, tubes, ovaries. Procedures: The patient was taken to the operating room where epidural anesthesia was bolused and found to be adequate. She was prepped and draped in the normal sterile fashion in the dorsal supine position with a leftward tilt. A Pfannenstiel skin incision was made with a scalpel and carried through to the underlying layer of fascia. The fascia was incised in the midline and the incision extended laterally with Shah scissors. The superior aspect of this incision was grasped with Daniella clamps, elevated. and the underlying rectus muscles dissected off bluntly. Attention was then turned to the inferior aspect of this incision which, in a similar fashion, was grasped, tented up with the Daniella clamps, and the rest rectus muscles dissected off bluntly. The rectus muscles were then in the midline, and the peritoneum identified, tented up, and entered sharply with Metzenbaum scissors. The peritoneal incision was extended superiorly and inferiorly with good visualization of the bladder. The bladder blade was inserted and the vesicouterine peritoneum identified, grasped with pickups, and entered sharply with the Metzenbaum scissors. This incision was extended laterally, and the bladder flap created digitally. The bladder blade was then reinserted and the lower uterine segment incised in transverse fashion with the scalpel. The uterine incision was bluntly extended laterally. The bladder blade was removed, and the infant's head delivered atraumatically. After 45 seconds of delayed cord clamping, the cord was clamped and cut. The nose and mouth were suctioned as needed with a bulb syringe, and the was handed off to awaiting staff. The placenta was then removed spontaneously, and the uterus was exteriorized and cleared of all clots and debris. The uterine incision was repaired with 1-0 chromic in a running, locked fashion, and a 2nd layer of the same suture was used in a running fashion to obtain excellent hemostasis. The uterus was returned to the abdomen, and the gutters were cleared of all clots and debris. The bladder flap was closed with 3 O Vicryl in a running fashion, the peritoneum was closed with 3-0 Vicryl, and the fascia reapproximated with 0 Vicryl in a running fashion. The subcutaneous layer was placed with 3 0 Vicryl in an interrupted fashion and the skin was closed with 4-0 biosyn in a running fashion. The patient tolerated the procedure well sponge lap and needle counts were correct x2. Clindamycin, gentamicin, and azithromycin were given at commencement of the case. The patient was taken to the recovery room in stable condition. Complications: none Post-operative Condition: stable Disposition: PACU Plan for aftercare: Routine postoperative care.
[2019-07-04] MEDS: KETOROLAC 30 MG/ML VIAL IV (20:35)
[2019-07-04 20:38] VITALS: BP 80/60; PULSE 102; RESP 13; O2SAT 100
[2019-07-04 20:39] VITALS: BP 115/74; PULSE 98; RESP 17; O2SAT 100
[2019-07-04 20:43] VITALS: BP 116/74; PULSE 90; RESP 18; O2SAT 100
--- NOTE | 2019-07-04 20:47 | SUR.PHASEI ---
Patient declined narcotics. Shivering has lessened.
--- NOTE | 2019-07-04 20:50 | SUR.PHASEI ---
report called to
[2019-07-04 20:52] VITALS: BP 111/81; PULSE 88; RESP 14; O2SAT 100
--- NOTE | 2019-07-04 21:06 | SUR.PHASEI ---
Patient transferred to the center. Report given to yuly Arce stable. Fundus, pad and dressing checked with RN. Small amt of shadow drainage to dressing. Patient able to wiggle toes, spinal about L1. IV patent, ortega patent.
[2019-07-05] MEDS: ACETAMINOPHEN 325 MG TABLET 650 MG PO ×4 (00:22→23:43)
[2019-07-05] MEDS: KETOROLAC 30 MG/ML VIAL IV ×3 (02:41→16:54)
[2019-07-05 05:09] LABS: Hematocrit 31.8 % (36-46); Hemoglobin 10.4 g/dL (12.0-16.0)
--- NOTE | 2019-07-05 08:41 | PM.OBPN.1 ---
Subjective - OB Subjective Patient comments: pain well controlled, incisional pain and tolerating diet baby status: doing well and nursing well Narrative: This patient is a 28yo now P1 POD#1 s/p for pCS for arrest of dilation. The patient reports mild incisional pain, has tolerated crackers, but has not ambulated and still has a ortega. No other complaints this AM. Date Patient Seen: 07/05/19 Time Patient Seen: 07:30 Exam Vital Signs (past 8 hours): 124/70, T 98.4, HR 100 Oxygen Delivery Method Room Air Const General: cooperative, healthy appearing, comfortable and well groomed Resp Effort & Inspection: normal respiratory effort Auscultation: clear to auscultation bilaterally Cardio Rate: regular rate Rhythm: regular rhythm GI Palpation: soft and No tender Other: fundus firm, well below u. Incision c/d/i, covered by bandage. Skin General: no rashes or lesions noted Objective Labs Result Diagrams: 07/05/19 04:35 Labs: Laboratory Results - last 24 hr 07/05/19 04:35 Hgb 10.4 L Hct 31.8 L Assessment & Plan Plan day: 1 plan OB: routine postop care Comments: Patient recovering appropriately, meeting postop goals as expected. Routine postop care. Time Spent With Patient Time: Total time spent is greater than 50% in coordination of care (as documented) at patient's floor/unit and/or counseling patient: Time with patient: less than 15 minutes
[2019-07-05] MEDS: DOCUSATE 250 MG CAPSULE PO (09:00)
[2019-07-05] MEDS: OXYCODONE IR 5 MG TABLET PO ×3 (12:23→23:43)
[2019-07-05] MEDS: LANOLIN OINT 7 GM 1 APPLIC TOP (12:23)
[2019-07-05] MEDS: IBUPROFEN 600 MG TABLET PO (23:43)
[2019-07-06] MEDS: OXYCODONE IR 5 MG TABLET PO ×3 (03:29→11:49)
[2019-07-06] MEDS: IBUPROFEN 600 MG TABLET PO ×2 (05:30→11:49)
[2019-07-06] MEDS: ACETAMINOPHEN 325 MG TABLET 650 MG PO (05:30)
[2019-07-06] MEDS: LANOLIN OINT 7 GM 1 APPLIC TOP (08:01)
[2019-07-06] MEDS: DOCUSATE 250 MG CAPSULE PO (08:02)
--- NOTE | 2019-07-06 10:45 | P.PNOB_ITS ---
Subjective - OB Subjective Patient comments: no complaints, pain well controlled, incisional pain and tolerating diet baby status: doing well and nursing well [place] feeding status: exclusively breast feeding Narrative: This patient is postop day 2 status post primary section for arrest of dilation in the setting of an 8 lb 6 oz, OPP. Patient reports that she is in minimizing pain medications and notices significant incisional pain at those times, and we discussed use of Motrin and Tylenol with breakthrough opioids. Patient otherwise meeting postoperative goals well. Date Patient Seen: 07/06/19 Time Patient Seen: 10:46 Exam Vital Signs (past 8 hours): 123/79, HR 88, T 36.1C Oxygen Delivery Method Room Air Const General: cooperative, healthy appearing and comfortable Resp Effort & Inspection: normal respiratory effort Auscultation: clear to auscultation bilaterally Cardio Rate: regular rate Rhythm: regular rhythm GI Palpation: soft and No tender Other: Incision clean, dry, intact, covered by dressing. Skin General: no rashes or lesions noted Objective Labs Result Diagrams: 07/05/19 04:35 Assessment & Plan Plan day: 2 plan OB: routine postop care and discharge home Comments: This patient is meeting postoperative goals well, with the exception of pain control. The patient has been minimizing to avoiding completely using pain medications. We discussed that I would recommend Q 6 hour Motrin and Tylenol for the 1st 2 days, with breakthrough oxycodone. We discussed that she will likely need pain medication to function at home, and precautions that should cause her to call. The patient and her partner vocalized understanding. Discharge instructions and precautions were discussed. All questions were answered. Time Spent With Patient Time: Total time spent is greater than 50% in coordination of care (as documented) at patient's floor/unit and/or counseling patient: Time with patient: 15-24 minutes
--- NOTE | 2019-07-06 10:49 | P.DS_ITS ---
Discharge Providers Provider Date of admission: 07/02/19 17:53 Discharge Date: 07/06/19 Primary care physician: ALLA Rossi Consults: 07/04/19 20:52 Consult to [employer] Routine Comment: Discharge provider: Norma Copeland MD Summary Hospital Course Date Patient Seen: 07/06/19 Time Patient Seen: 10:49 Procedures: Primary section Hospital Course: This patient presented for scheduled induction of labor for postdates. She was administered Cervidil overnight the 1st night, 12 hours Pitocin, 3 doses of Cytotec the 2nd night, and 12 hours of Pitocin after AROM. The patient progressed to 5 cm dilated, but remained at 0 station for the majority of her stay, the head remained ballotable with molding, and the heart rate tracing began to be category 2. At that point, the patient was taken for primary section for arrest of descent. She was delivered of a healthy male from the ROP presentation, weighing 8 lb 6 oz, Apgars 9 and 9. There was no nuchal cord. Her section was uncomplicated, and her recovery was uneventful. The patient was discharged home on postoperative day 2 with routine follow-up in precautions. Peripartum Data Infant Delivery Method: Section Laceration description: None complications: none 1: Gender: Male Disposition of : home Discharge Diagnosis (1) Delivery by section: Status: Acute Status at Discharge Cognitive/behavioral status at discharge: oriented Functional status at discharge: independent ambulation Overall status at discharge: patient is progressing back to baseline Time Spent with Patient Time attestation: Total time spent providing and/or coordinating discharge services: Time spent: Greater than 30 minutes Objective Labs Result Diagrams: 07/05/19 04:35 Exam Vital Signs (past 8 hours): See day of discharge progress note Oxygen Delivery Method Room Air Discharge Plan Discharge Plan Patient Disposition: Home Discharge orders & Medications Prescriptions: New oxycodone 5 mg tablet 5 mg PO Q8H PRN (Reason: pain) Qty: 10 RF: 0 Continued OBC-itzs-DZ-omega 3-fat com #1 27-1-300 mg capsule 1 cap PO DAILY RF: 0 Follow up/Referrals: Yudy Monreal ARNP [Primary Care Provider] - Norma Copeland MD [Physician] - 2 Weeks Diet/Activity/Treatments Diet: Regular Activity: Nothing in the vagina for 6 weeks. Avoid heavy lifting for 6 weeks. If you developed increasing bleeding, fevers, chills, nausea, vomiting, cough, chest pain, or any other symptoms, call the clinic number or come to the emergen cy room. Visit Report/Discharge Packet Instructions: DI for Discharge Data Primary Care Provider: Yudy Monreal
[2019-07-06 11:13] VITALS: BP 111/81; PULSE 88; RESP 14; TEMP 36.7
== END 2019-07-06 14:40 | disposition home or self-care (01) | DRG 788 ==
PROVIDERS: Admitting Provider Obstetrics & Gynecology; PCP Nurse Practitioner; Referring Provider Obstetrics & Gynecology; Visit Provider Obstetrics & Gynecology
PROC: 10D00Z1 Extraction of Products of Conception, Low, Open Approach (ICD-10-PCS; CPT 59514; principal; 2019-07-04 18:35)
DX: O48.0 Post-term pregnancy (principal); Z3A.41 41 weeks gestation of pregnancy; Z37.0 Single live birth; O77.0 Labor and delivery complicated by meconium in amniotic fluid; O62.0 Primary inadequate contractions; O64.8XX0 Obstructed labor due to other malposition and malpresentation, not applicable or unspecified
CPT/HCPCS: 01967; 01968; 36415; 59050; 59200; 59514; 59515; 85014; 85018; 85025; 86850; 86900; 86901; G0379; J1885; J2590

== ENCOUNTER → 2019-07-19 15:32 | Outpatient (CLI) | payer OTHER, SELFPAY | PROVIDERS: PCP Nurse Practitioner; Visit Provider Specialist | DX: L02.91 Cutaneous abscess, unspecified (principal) | CPT/HCPCS: 87070; 87075; 87205 ==

== ENCOUNTER → 2020-07-30 09:38 | Outpatient (CLI) | payer OTHER, SELFPAY ==
--- NOTE | 2020-07-30 09:40 | DI.RAD.S_ITS ---
PROCEDURE: XR TOE RT MIN 2V INDICATIONS: sprain vs fracture TECHNIQUE: 3 views of the right 5th toe(s) acquired. COMPARISON: None. FINDINGS: Bones: No fractures or dislocations. No suspicious bony lesions. Soft tissues: No suspicious soft tissue densities. IMPRESSION: No fracture. No osseous lesion. If symptoms and/or clinical suspicion for pathology persists, further assessment with repeat radiographs (7-10 days) or advanced imaging (e.g. CT, MRI or bone scan) should be considered. Dictated by: Krista Siddiqui MD, PhD on 07/30/2020 at 10:02 Approved by: Krista Siddiqui MD, PhD on 07/30/2020 at 10:02
== END ==
PROVIDERS: PCP Nurse Practitioner; Referring Provider Student in an Organized Health Care Education/Training Program; Visit Provider Student in an Organized Health Care Education/Training Program
DX: S93.504A Unspecified sprain of right lesser toe(s), initial encounter (principal); X58.XXXA Exposure to other specified factors, initial encounter
CPT/HCPCS: 73660

== ENCOUNTER → 2021-02-10 15:52 | Outpatient (CLI) | payer OTHER, SELFPAY ==
--- NOTE | 2021-02-10 15:53 | DI.US.S_ITS ---
PROCEDURE: US OB <= 14 WEEKS FETUS INDICATIONS: OB US DATING OUTSIDE/PRIOR DATING DATA: Last menstrual period (LMP): December 02, 2020. LMP-based estimated date of delivery (ALLIE): September 08, 2021. First dating scan (date and location): [facility]; February 10, 2021. Estimated date of delivery (ALLIE) from first dating scan: September 09, 2021. TECHNIQUE: Real-time scanning was performed of the fetus and maternal pelvic organs, with image documentation. Endovaginal scanning was also performed to better visualize the fetus and maternal ovaries. COMPARISON: None. FINDINGS: Embryo: The mean crown-rump length measures 3 cm, compatible with 9 week, 6 day gestation. Heart rate: 180 beats per minute Measurement variability in dating: +/- 4 weeks by LMP, +/- 7 days by mean sac diameter (use before 6 weeks gestation if crown-rump length not able to be measured), +/- 5 days by crown-rump length (up to 8 weeks 6 days gestation), +/- 7 days by crown-rump length (up to 13 weeks 6 days gestation). Maternal organs: Isoechoic lesion in the right ovary, most consistent with a corpus luteum. . IMPRESSION: Early live single intrauterine gestation as detailed above. Dictated by: Parminder Santiago M.D. on 02/11/2021 at 8:50 Approved by: Parminder Santiago M.D. on 02/11/2021 at 8:53
[2021-02-10 16:35] LABS: Add Manual Diff / Slide Review NO; Basophils Absolute Auto 0 /uL (0-100); Basophils Percent Auto 0.5 % (0-2); Eosinophils Absolute Auto 200 /uL (0-450); Eosinophils Percent Auto 2.4 % (2-4); Hematocrit 35.1 % (36-46); Hemoglobin 11.8 g/dL (12.0-16.0); Lymphocytes Absolute Auto 2200 /uL (1100-4500); Lymphocytes Percent Auto 26.8 % (25-40); Mean Corpuscular HGB Conc 33.6 % (30-36); Mean Corpuscular Hemoglobin 29.2 PG (26-34); Mean Corpuscular Volume 87.1 fL (80-100); Monocytes Absolute Auto 800 /uL (0-900); Monocytes Percent Auto 9.2 % (3-14); Neutrophils Absolute Auto 5100 /uL (1500-7000); Neutrophils Percent Auto 61.1 % (50-75); Platelet Count 212 X10^3/uL (150-400); Red Blood Cell Count 4.03 X10^6/uL (4.0-5.2); White Blood Cell Count 8.4 X10^3/uL (4.5-11.0)
[2021-02-10 17:35] LABS: HCG Quantitative /Beta subunit 91176 mIU/mL
[2021-02-11 06:40] LABS: RPR Screen Non Reactive (Non Reactive)
[2021-02-11 08:10] LABS: Varicella IgG Antibody 2442 index (Immune >165)
[2021-02-11 16:27] LABS: Hepatitis B Surface Antigen NEGATIVE s/c (NEGATIVE)
[2021-02-11 16:48] LABS: HIV 1 & 2 Ab/Ag 4th Gen Combo NEGATIVE (NEGATIVE); Hep C Virus Ab w/Reflex Quant NEGATIVE s/c (NEGATIVE)
[2021-02-20 13:41] LABS: Rubella Antibody IgG 15.5 IU/mL (>15)
== END ==
PROVIDERS: PCP Nurse Practitioner; Referring Provider Obstetrics & Gynecology; Visit Provider Obstetrics & Gynecology
DX: Z36.87 Encounter for antenatal screening for uncertain dates; Z3A.09 9 weeks gestation of pregnancy
CPT/HCPCS: 36415; 76801; 80055; 84144; 84702; 86787; 86803; 86850; 86870; 86900; 86901; 87389

== ENCOUNTER → 2021-04-12 09:32 | Outpatient (CLI) | payer OTHER, SELFPAY ==
[2021-04-15 20:38] LABS: Estriol, Free 1.87 ng/mL (.); Inhibin A, Dimeric 141.58 pg/mL (.); Inhibin A, MoM 0.76 (.); Maternal Ethnicity Caucasian (.); Maternal Weight 124 lbs (.); Number of Fetuses No (.); OSBR Risk 1 IN 9540 (.); Results Report (.); Test Results *Screen Negative* (.); hCG, MoM 1.13 (.); hCG, Serum 35257 mIU/mL (.)
== END ==
PROVIDERS: PCP Nurse Practitioner; Referring Provider Obstetrics & Gynecology; Visit Provider Obstetrics & Gynecology
DX: Z34.82 Encounter for supervision of other normal pregnancy, second trimester (principal); Z36.0 Encounter for antenatal screening for chromosomal anomalies; Z3A.18 18 weeks gestation of pregnancy
CPT/HCPCS: 36415; 82105; 82677; 84702; 86336

== ENCOUNTER → 2021-04-30 07:43 | Outpatient (CLI) | payer OTHER, SELFPAY ==
--- NOTE | 2021-04-30 07:44 | DI.US.S_ITS ---
PROCEDURE: US OB >= 14 WEEKS FETUS INDICATIONS: ANATOMY OUTSIDE/PRIOR DATING DATA: Last menstrual period (LMP): 12/02/2020 LMP-based estimated date of delivery (ALLIE): 09/08/2021. First dating scan (date and location): 02/10/2021. Estimated date of delivery (ALLIE) from first dating scan: 09/09/2021. The calculations are made using the ultrasound ALLIE of 09/09/2021. TECHNIQUE: Real-time scanning was performed of the fetus, with image documentation and biometric measurements. COMPARISON: [facility], , OB >= 14 WEEKS FETUS, 07/01/2019, 11:13. [facility], , OB <= 14 WEEKS FETUS, 02/10/2021, 16:45. FINDINGS: General: A single living intrauterine gestation is present. Presentation: Breech. Placenta: Placental position is anterior , without previa. Amniotic fluid index: 16.0 cm, normal range is 5-24 cm. heart rate: 141 beats per minute. Maternal cervical canal: 3.6 cm long. Normal lower limit is 2.5 cm. biometrics: Biparietal diameter: 20 weeks 6 days Head circumference: 20 weeks 5 days Abdominal circumference: 20 weeks 4 days Femur length: 20 weeks 2 days Clinically estimated gestational age: 21 weeks 1 day Composite gestational age from present scan: 21 weeks 4 days Estimated weight and percentile: 356 g; 15 percentile Anatomic survey: Neuro: Ventricles are non-dilated at less than 10 mm. Cisterna magna is normal at 3-11 mm. Cerebellum is normal in size and morphology. Nuchal skin fold: Normal at less than 6 mm between 14-21 weeks gestational age. Face: Nose and lips, facial profile are normal. Spine: No evidence for spina bifida. Heart: 4-chambered heart is present, with normal ventricular outflow tracts. Diaphragm: Diaphragm is intact. Stomach: Left-sided stomach is present. Kidneys: No hydronephrosis. Normal is less than 5 mm in 2nd trimester, less than 7 mm in 3rd trimester. Cord: 3-vessel cord has orthotopic insertion. Bladder: Normal in size. Extremities: All 4 extremities identified. IMPRESSION: 1. Single living IUP redemonstrated and interval growth is normal. 2. Normal anatomic survey. We strive to produce accurate, complete, and clear reports of imaging services. To assist us in improving patient care, this report was composed using standard report templates and voice recognition software. Therefore, it may contain abnormal punctuation, insertions and/or omissions. Occasional wrong-word or sound-alike substitutions may occur. Though we review the report and make efforts to correct it, we do recommend that the report be read carefully in proper context to recognize any text inaccuracies. Dictated by: Len MARTÍNEZ Interpreted: Parminder Santiago MD on 04/30/2021 at 13:35 Transcribed by: JACKSON on 04/30/2021 at 13:37 Approved by: Parminder Santiago M.D. on 04/30/2021 at 19:56
== END ==
PROVIDERS: PCP Nurse Practitioner; Referring Provider Obstetrics & Gynecology; Visit Provider Obstetrics & Gynecology
DX: Z34.82 Encounter for supervision of other normal pregnancy, second trimester (principal); Z3A.21 21 weeks gestation of pregnancy
CPT/HCPCS: 76811

== ENCOUNTER → 2021-07-01 11:29 | Outpatient (CLI) | payer OTHER, SELFPAY | PROVIDERS: PCP Nurse Practitioner; Visit Provider Obstetrics & Gynecology | DX: R30.0 Dysuria (principal); R31.9 Hematuria, unspecified; R35.89 Other polyuria | CPT/HCPCS: 87077; 87086; 87186 ==

== ENCOUNTER 2021-07-28 10:53 | Observation (INO) | payer OTHER, SELFPAY ==
[2021-07-28 12:34] LABS: Appearance Urine UA CLEAR; Bilirubin Urine UA NEGATIVE (NEGATIVE); Color Urine UA YELLOW; Glucose Urine UA NEGATIVE (Negative); Ketones Urine UA NEGATIVE (NEGATIVE); Leukocyte Esterase Urine UA 1+ (NEGATIVE); Nitrite Urine UA NEGATIVE (Negative); Occult Blood Urine UA NEGATIVE (Negative); Protein Urine UA NEGATIVE (Negative); Specific Gravity Urine UA <=1.005 (1.000-1.035); Urobilinogen Urine UA 0.2 E.U./dL (0.2)
[2021-07-28 12:38] LABS: UR Morphine/Opiate cutoff 300 Negative (Negative); Ur Creatinine Normal (Normal); Ur Specific Gravity Normal (Normal); Urine Amphetamines Negative (Negative); Urine Barbiturates Negative (Negative); Urine Benzodiazepines Negative (Negative); Urine Cocaine Negative (Negative); Urine MDMA Negative (Negative); Urine Methadone Negative (Negative); Urine Methamphetamines Negative (Negative); Urine Oxycodone Negative (Negative); Urine Phencyclidine Negative (Negative); Urine Tetrahydrocannabinol Negative (Negative); Urine Tricyclic Antidepressant Negative (Negative); Urine pH Normal (Normal)
[2021-07-28 12:43] LABS: COVID19 -Nasal RAPID Negative (Negative)
[2021-07-28 12:56] LABS: Amorphous Sediment Urine 1+; Bacteria Urine Few (2-10); RBC Urine None Seen (0-5/HPF); Squamous Epithelial Cell Urine 1-5 /HPF (0-5/HPF); WBC Urine 1-5/HPF (0-5/HPF)
[2021-07-28] MEDS: ACETAMINOPHEN 325 MG TABLET 650 MG PO (13:34)
[2021-07-28] MEDS: LACTATED RINGERS 1,000 ML 1000 ML IV (14:07)
[2021-07-28 14:26] LABS: Add Manual Diff / Slide Review NO; Basophils Absolute Auto 100 /uL (0-100); Basophils Percent Auto 0.5 % (0-2); Eosinophils Absolute Auto 0 /uL (0-450); Eosinophils Percent Auto 0.1 % (2-4); Hematocrit 32.8 % (36-46); Lymphocytes Absolute Auto 600 /uL (1100-4500); Lymphocytes Percent Auto 4.9 % (25-40); Mean Corpuscular HGB Conc 33.6 % (30-36); Mean Corpuscular Hemoglobin 28.3 PG (26-34); Mean Corpuscular Volume 84.2 fL (80-100); Monocytes Absolute Auto 1200 /uL (0-900); Monocytes Percent Auto 9.6 % (3-14); Neutrophils Absolute Auto 10500 /uL (1500-7000); Neutrophils Percent Auto 84.9 % (50-75); Platelet Count 154 X10^3/uL (150-400); Red Cell Distribution Width 14.1 % (11.6-14.8); White Blood Cell Count 12.3 X10^3/uL (4.5-11.0)
[2021-07-28 14:32] LABS: Alanine Aminotransferase 14 IU/L (<35); Albumin 3.6 g/dL (3.5-5.0); Albumin Globulin Ratio 1.2 (1.0-2.8); Alkaline Phosphatase 110 U/L (38-126); Aspartate Aminotransferase 23 IU/L (14-36); BUN Creatinine Ratio 8.3 (6-22); Bilirubin Total 1.1 mg/dL (0.2-1.3); Blood Urea Nitrogen 3 mg/dL (7-17); Calcium 8.4 mg/dL (8.4-10.2); Carbon Dioxide 19 mmol/L (22-32); Chloride 108 mmol/L (98-107); Estimated Glomerular Filt Rate > 60 mL/min (>60); Globulin 2.9 g/dL (1.7-4.1); Glucose 102 mg/dL (70-100); HEMOLYSIS < 15 (0-50); Potassium 3.6 mmol/L (3.4-5.1); Sodium 135 mmol/L (137-145); Total Protein 6.5 g/dL (6.3-8.2)
[2021-07-28 14:49] LABS: Procalcitonin 0.06 ng/mL (<0.5)
--- NOTE | 2021-07-28 15:35 | P.TNLD_ITS ---
Visit Information Visit Information Date of evaluation: 07/28/21 Primary OB Provider: Norma Copeland On-call OB Provider: Bell Canas Reason for Evaluation: Yes other Comments/Additional reasons for admission: Patient with fever and tachycardia Vital Signs Vital Signs: Blood pressure 118/72, pulse 126, temperature 98.6? [facility] Medical History (Updated 07/28/21 @ 22:40 by Bell Canas MD) Acne Allergies Breast feeding status of mother Dyspareunia (~2010) Endometriosis (~2018) Endometriosis of both ovaries Frequent headaches Heavy menstrual period History of endometriosis (~2018) Hypothyroidism (~2017) Inability to conceive, female Infertility (~2015) Migraine (~2001) Painful menstrual periods Ruptured ovarian cyst (~04/2018) Sprain of toe, fifth, right (~2020) Vision disorder Vulvar abscess (~07/2019) Surgical History (Updated 02/12/21 @ 11:39 by Sebas Phelps MD) Anesthesia Delivery by section (~2019) History of laparoscopy (~08/13/18) History of laparoscopy (~2008) History of tonsillectomy (~2003) [place] teeth extracted (~2005) Family History (Updated 02/05/21 @ 13:40 by Yudy Richard RN) Father Hypertension Diverticulitis Mother Hypertension Grandmother Hypertension Grandfather Diabetes mellitus Grandmother H/O hyperthyroidism Lung cancer Grandfather Family history unknown Social History marital status: number of children: 1 household members: spouse and children lives independently: Yes caregiver/support person: No housing: house pets and animals: Yes (2 cats: aware/safe) education level: college (some college. ) occupational status: unemployed (SAHM.) current occupational exposures/hazards: No pravin/yazidi: Sabianist special pravin needs: No seatbelt use: always do you feel safe at home: Yes Smoking Status: Never smoker second hand exposure: No alcohol intake: former (Pre-: very rarely, 1-2 x / year. ) substance use type: does not use during the past year weight has: remained stable well-balanced diet: daily or most days daily servings fruits/ve-4 caffeine: Yes (<4 oz coffee.) Type(s) of exercise: walking, bicycling (Resistance bike at home. ) and weight lifting (light weights.) frequency: 3-4 times per week duration: 30-45 minutes/day Review of Systems Review of Systems Narrative: Patient began having symptoms yesterday of aches, runny nose, minimal cough. Her symptoms worsened overnight with a fever over 100. She presented to the walk-in clinic and told them that she noted decreased movement so she was sent to Labor and delivery for evaluation. She denies any nausea vomiting. No abdominal pain. No contractions. No vaginal bleeding. No UTI symptoms. No constipation or diarrhea symptoms. Exam Vital Signs (past 8 hours): Normal oxygenation Narrative Exam Narrative: HEENT exam within normal limits. Lungs are clear to auscultation and percussion . Heart is regular rate and rhythm although tachycardic. Abdomen is soft, nontender, gravid. No CVA tenderness. Extremities without edema and nontender. Objective ECG Impression: Tachycardia Labs Result Diagrams: 07/28/21 14:22 07/28/21 14:22 Labs: Laboratory Results - last 24 hr 07/28/21 07/28/21 07/28/21 12:03 12:04 12:16 WBC RBC Hgb Hct MCV MCH MCHC RDW Plt Count Neut % (Auto) Lymph % (Auto) [place] % (Auto) Eos % (Auto) Baso % (Auto) Neut # (Auto) Lymph # (Auto) [place] # (Auto) Eos # (Auto) Baso # (Auto) Sodium Potassium Chloride Carbon Dioxide BUN Creatinine Estimated GFR BUN/Creatinine Ratio Glucose Calcium Total Bilirubin AST ALT Alkaline Phosphatase Total Protein Albumin Globulin Albumin/Globulin Ratio Procalcitonin Urine Color Yellow Urine Appearance Clear Urine pH 7.0 Ur Specific Bunch <=1.005 Urine Protein Negative Urine Glucose (UA) Negative Urine Ketones Negative Urine Occult Blood Negative Urine Nitrate Negative Urine Bilirubin Negative Urine Urobilinogen 0.2 Ur Leukocyte Esterase 1+ H Urine RBC None seen Urine WBC 1-5/hpf Ur Squamous Epith Cells 1-5 /hpf Amorphous Sediment 1+ Urine Bacteria Few (2-10) H Ur Culture Indicated? Culture not indicate U Opiates 300ng/mL cut Negative Ur Oxycodone Screen Negative Urine Methadone Screen Negative Ur Barbiturates Screen Negative U Tricyclic Antidepress Negative Ur Phencyclidine Scrn Negative Ur Amphetamines Screen Negative U Methamphetamines Scrn Negative Ur MDMA Scrn (Ecstasy) Negative U Benzodiazepines Scrn Negative Urine Cocaine Screen Negative U Marijuana (THC) Screen Negative SARS-CoV-2 (PCR) Negative 07/28/21 07/28/21 14:22 14:22 WBC 12.3 H RBC 3.90 L Hgb 11.0 L Hct 32.8 L MCV 84.2 MCH 28.3 MCHC 33.6 RDW 14.1 Plt Count 154 Neut % (Auto) 84.9 H Lymph % (Auto) 4.9 L [place] % (Auto) 9.6 Eos % (Auto) 0.1 L Baso % (Auto) 0.5 Neut # (Auto) 11885 H Lymph # (Auto) 600 L [place] # (Auto) 1200 H Eos # (Auto) 0 Baso # (Auto) 100 Sodium 135 L Potassium 3.6 Chloride 108 H Carbon Dioxide 19 L BUN 3 L Creatinine 0.36 L Estimated GFR > 60 BUN/Creatinine Ratio 8.3 Glucose 102 H Calcium 8.4 Total Bilirubin 1.1 AST 23 ALT 14 Alkaline Phosphatase 110 Total Protein 6.5 Albumin 3.6 Globulin 2.9 Albumin/Globulin Ratio 1.2 Procalcitonin 0.06 Urine Color Urine Appearance Urine pH Ur Specific Bunch Urine Protein Urine Glucose (UA) Urine Ketones Urine Occult Blood Urine Nitrate Urine Bilirubin Urine Urobilinogen Ur Leukocyte Esterase Urine RBC Urine WBC Ur Squamous Epith Cells Amorphous Sediment Urine Bacteria Ur Culture Indicated? U Opiates 300ng/mL cut Ur Oxycodone Screen Urine Methadone Screen Ur Barbiturates Screen U Tricyclic Antidepress Ur Phencyclidine Scrn Ur Amphetamines Screen U Methamphetamines Scrn Ur MDMA Scrn (Ecstasy) U Benzodiazepines Scrn Urine Cocaine Screen U Marijuana (THC) Screen SARS-CoV-2 (PCR) Diagnosis, Plan/Disposition Final Diagnosis (1) 34 weeks gestation of : Status: Acute (2) Tachycardia determined by examination of pulse: Status: Acute (3) Upper respiratory infection with cough and congestion: Status: Acute Plan/Disposition Plan: Patient with upper respiratory infection likely viral COVID negative. Tachyc ardia likely to infection. Patient is to continue Tylenol and hydration. Patient is try to keep her temperature down as needed with cool shower, cool liquids. Patient is to call or return if her symptoms worsen instead of improve. OB Disposition: home
== END 2021-07-28 15:40 | disposition home or self-care (01) ==
PROVIDERS: Specialist; Admitting Provider Obstetrics & Gynecology; PCP Nurse Practitioner; Referring Provider Obstetrics & Gynecology; Visit Provider Obstetrics & Gynecology
DX: O99.413 Diseases of the circulatory system complicating pregnancy, third trimester (principal); O99.513 Diseases of the respiratory system complicating pregnancy, third trimester; O36.8130 Decreased fetal movements, third trimester, not applicable or unspecified; R00.0 Tachycardia, unspecified; J06.9 Acute upper respiratory infection, unspecified; Z3A.34 34 weeks gestation of pregnancy
CPT/HCPCS: 59025; 80053; 80305; 81003; 81015; 84145; 85025; 87086; 87635; 93005; 96360; C9803; G0378; G0379